=== PATIENT | female | born 1980 | race Caucasian/White ===

== ENCOUNTER 2023-05-07 08:54 | Inpatient (IN) | payer BC ==
[2023-05-03 09:26] LABS: Basophils # (auto) 0 10 ^3/uL (0-0.2); Basophils % (auto) 0.4 % (0.0-2.0); Eosinophils # (auto) 0.1 10 ^3/uL (0-0.8); Eosinophils % (auto) 1.1 % (0.0-7.0); Hematocrit 40.7 % (36.0-46.0); Hemoglobin 13.2 g/dL (12.2-16.2); Lymphocytes # (auto) 2.1 10 ^3/uL (0.4-5.4); Lymphocytes % (auto) 36.2 % (10.0-50.0); Mean Corpuscular Hemoglobin 28.5 pg (28.0-32.0); Mean Corpuscular Hgb Conc. 32.6 g/dL (32.0-36.0); Mean Corpuscular Volume 87.5 fL (80.0-100.0); Monocytes # (auto) 0.3 10 ^3/uL (0-1.3); Monocytes % (auto) 5.8 % (0.0-12.0); Neutrophils # (auto) 3.3 10 ^3/uL (1.6-8.6); Neutrophils % (auto) 56.5 % (37.0-80.0); Nucleated Red Blood Cells % 0.1 %; Red Blood Cells 4.65 10^6/uL (4.0-5.20); Red Cell Distribution Width 17.6 % (11.8-14.3); White Blood Cell 5.8 10^3/uL (4.4-10.8)
[2023-05-03 09:42] LABS: INR 1.09 (0.9-1.15); Partial Thromboplastin Time 30.6 SEC (24.5-34.5); Prothrombin Time 11.4 sec (9.3-11.8)
[2023-05-03 09:46] LABS: Urine Bacteria FEW /hpf (None Seen); Urine Blood TRACE /uL (Negative); Urine Clarity Clear (Clear); Urine Color Colorless (Yellow); Urine Protein, UAD Negative (Negative); Urine Specific Gravity 1.003 (1.001-1.035); Urine Urobilinogen Normal (Negative); Urine WBC <1 /hpf (0 - 5)
[2023-05-03 09:52] LABS: Alanine Aminotransferase 13 U/L (7-40); Alkaline Phosphatase 50 U/L (46-116); Anion Gap 6 (5-15); Aspartate Aminotransferase 11 U/L (13-40); BUN/Creatinine Ratio 15.7 (10.0-20.0); Blood Urea Nitrogen 14 mg/dL (9-23); Calcium 9.8 mg/dL (8.5-10.1); Carbon Dioxide 28 mmol/L (20-30); Chloride 106 mmol/L (98-107); Glucose 92 mg/dL (74-106); Potassium 3.9 mmol/L (3.5-5.1); Sodium 140 mmol/L (136-145)
[2023-05-03 09:53] LABS: Bilirubin, Total 0.5 mg/dL (0.2-1.0); Total Protein 7.6 g/dL (5.7-8.2)
[~2023-05-07] VITALS: Ht 162.6 cm; Wt 59.1 kg
[~2023-05-07 08:54] MED LIST: PROG100S VA
[2023-05-07] MEDS ORDERED: fentaNYL CITRATE 5 ML ONE (09:24)
[2023-05-07] MEDS ORDERED: MIDAZOLAM HCL 2MG/2ML 2ml VIAL (1mg/ml) ONE (09:24)
[2023-05-07] MEDS ORDERED: NEOSTIGMINE 1 MG/ML INJ (10mg/10ML VIAL) ONE (09:24)
[2023-05-07] MEDS ORDERED: fentaNYL CITRATE 100 MCG/2 ML VL ONE (09:24)
[2023-05-07] MEDS ORDERED: DexAMETHasone SOD PHOS 10MG/1ML VIAL INJ ONE (09:24)
[2023-05-07] MEDS ORDERED: PROPOFOL 10 MG/ML 20 ML IV ONE (09:24)
[2023-05-07] MEDS ORDERED: ROCURONIUM 10MG/ML 10ML VIAL IV ONE (09:24)
[2023-05-07] MEDS ORDERED: SODIUM CHLORIDE LOCK 50 ML ONE (09:24)
[2023-05-07] MEDS ORDERED: ONDANSETRON HCL 4 MG/2 ML VIAL ONE (09:24)
[2023-05-07] MEDS ORDERED: KETAMINE 50mg/ML 1ml syringe ONE (09:24)
[2023-05-07] MEDS ORDERED: GLYCOPYRROLATE 0.2 MG/ML 1ML VIAL ONE (09:24)
[2023-05-07] MEDS: KETOROLAC TROMETH 30 MG/ML 1ML VIAL IV ONE (10:15)
[2023-05-07] MEDS ORDERED: HYDROmorphone HCL 2 MG/ML VL/or syr IV PRN ×3 (10:15→13:45)
[2023-05-07] MEDS ORDERED: METOCLOPRAMIDE HCL 5MG/ml INJ 2ml VIAL IV PRN (10:15)
[2023-05-07] MEDS ORDERED: MORPHINE SULFATE INJ 2 MG/ml SYRG IV PRN ×2 (10:15→11:30)
[2023-05-07] MEDS ORDERED: MEPERIDINE HCL (50 MG/ML) 1 ML VIAL ONE (10:58)
[2023-05-07] MEDS: BUPIVACAINE 0.25% INJ 50ML VIAL ONE (11:16)
[2023-05-07] MEDS: DexAMETHasone SOD PHOS 4 MG/1ML SDV INJ ONE (11:16)
[2023-05-07] MEDS: EPINEPHrine HCL 1 MG/1 ML AMP ONE (11:16)
[2023-05-07] MEDS: ceFAZolin 2 GM/D5W50ml 50 ML IV ONE (11:17)
[2023-05-07] MEDS ORDERED: NITROGLYCERIN 0.4 MG SL TAB SL PRN (11:30)
[2023-05-07] MEDS: LIDOCAINE W/ EPINEPHRINE 2% INJ 20ML VIAL ONE (12:46)
[2023-05-07 13:25] VITALS: O2SAT 97
[2023-05-07] MEDS: HYDROmorphone HCL 2 MG/ML VL/or syr ONE (13:37)
[2023-05-07] MEDS: HYDROmorphone HCL 2 MG/ML VL/or syr IV PRN (13:39)
[2023-05-07] MEDS: LABETALOL HCL 5 MG/ML 4ML SYRINGE IV ONE (13:45)
[2023-05-07] MEDS: HYDROcodone-ACET 5/325MG TAB PO PRN (14:04)
[2023-05-07] MEDS: hydrALAZINE HCL 20 MG/ML VL IV ONE (14:23)
[2023-05-07] MEDS: ONDANSETRON HCL 4 MG/2 ML VIAL IV PRN (16:27)
[2023-05-07] MEDS: ceFAZolin 1GM/50ML 50 ML IV SCH (16:27)
[2023-05-07] MEDS: MORPHINE SULFATE INJ 2 MG/ml SYRG IV PRN (16:28)
[2023-05-07 17:00] VITALS: BP 151/81; PULSE 103; RESP 18; TEMP 97.4; O2SAT 95
[2023-05-07 20:00] VITALS: PULSE 100; RESP 18; O2SAT 95
[2023-05-07] MEDS: ALPRAZolam 0.25 MG TAB PO PRN (21:41)
[2023-05-07] MEDS: LABETALOL HCL 200 MG TAB PO SCH (21:42)
[2023-05-07 22:00] VITALS: BP 149/90; PULSE 111; RESP 18; TEMP 98; O2SAT 96
[2023-05-07] MEDS: TEMAZEPAM 15 MG CAP PO PRN (23:59)
[2023-05-07] MEDS: SIMETHICONE 80 MG CHEWABLE TABLET PO PRN (23:59)
[2023-05-08 05:00] VITALS: BP 110/64; PULSE 94; RESP 18; TEMP 98.5; O2SAT 95
[2023-05-08 09:00] VITALS: BP 138/75; PULSE 105; RESP 17; TEMP 97.2; O2SAT 98
[2023-05-08 13:00] VITALS: BP 138/73; PULSE 96; RESP 17; TEMP 98.1; O2SAT 96
[2023-05-08] MEDS: KETOROLAC TROMETH 30 MG/ML 1ML VIAL IV PRN (16:10)
[2023-05-08 17:00] VITALS: BP 145/79; PULSE 83; RESP 17; TEMP 97.7; O2SAT 99
[2023-05-08 20:00] VITALS: RESP 18; O2SAT 96
[2023-05-08 22:00] VITALS: BP 142/85; PULSE 76; RESP 17; TEMP 98; O2SAT 96
[2023-05-09 05:00] VITALS: BP 111/59; PULSE 85; RESP 17; TEMP 97.9; O2SAT 97
[2023-05-09 09:00] VITALS: BP 141/79; PULSE 77; RESP 17; TEMP 97.8; O2SAT 98
[2023-05-09 11:36] VITALS: BP 141/79; PULSE 77; RESP 17; TEMP 97.8; O2SAT 98
[2023-05-09 13:00] VITALS: BP 136/86; PULSE 86; RESP 17; TEMP 98.4; O2SAT 98
== END 2023-05-09 17:55 | disposition home or self-care (01) | DRG 743 ==
LOC: SUR 08:54 → OVERFLOW 11:26 → EAST 16:00
PROVIDERS: ADMIT Obstetrics & Gynecology; ATTEND Obstetrics & Gynecology
PROC: 0UB70ZZ Excision of Bilateral Fallopian Tubes, Open Approach (ICD-10-PCS; 2023-05-07)
PROC: 0UBGXZZ Excision of Vagina, External Approach (ICD-10-PCS; 2023-05-07)
PROC: 0JQC0ZZ Repair Pelvic Region Subcutaneous Tissue and Fascia, Open Approach (ICD-10-PCS; 2023-05-07)
PROC: 0TSD0ZZ Reposition Urethra, Open Approach (ICD-10-PCS; 2023-05-07)
PROC: 0UT90ZL Resection of Uterus, Supracervical, Open Approach (ICD-10-PCS; principal; 2023-05-07 11:19)
DX: D25.9 Leiomyoma of uterus, unspecified (principal); N81.11 Cystocele, midline; N39.3 Stress incontinence (female) (male); N89.8 Other specified noninflammatory disorders of vagina
CPT/HCPCS: 36415; 80053; 81001; 84702; 85025; 85610; 85730; 86850; 86900; 86901; 87086; C1771; G0378; J0171; J1100; J1885; J2250; J2405; J2704; J3490